=== PATIENT | female | born 1980 | race Asian ===

== ENCOUNTER 2017-02-25 07:30 | Day surgery (SDC) | payer BC ==
[2017-02-22 12:22] VITALS: BMI 20.5
--- NOTE | 2017-02-25 09:09 | HP ---
History & Physical Update - History History: No Change - Physical Physical: No Change - Assessment Assessment: No Change - Plan Plan: No Change (volutary sterlization - for laparoscopic bilateral salpingectomy)
[2017-02-25] MEDS ORDERED: BUPIVACAINE HCL/PF 0.25% (2.5MG/ML) 10 ML VIAL IJ ONE (10:28)
--- NOTE | 2017-02-25 10:38 | OP ---
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
--- NOTE | 2017-02-25 10:42 | SURG ---
Surgery Music Mixer Note Music Mixer: Radha Castro PA-C Date of Service: 02/25/17 Diagnosis: desire for permanent sterilization Procedure: laparoscopic bilateral salpingectomy, right ovarian cystectomy I was present for the entirety of the operative procedure. For further detail, please refer to operative report. Visit type - Case Type Case Type: Scheduled Admission - Emergency Emergency Visit: No - New patient This patient is new to me today: Yes Date on this admission: 02/25/17 - Critical Care Critical Care patient: No
[2017-02-25] MEDS ORDERED: KETOROLAC TROMETHAMINE 30 MG/1 ML VIAL IVPUSH ONE (10:49)
[2017-02-25] MEDS ORDERED: LACTATED RINGERS SOLUTION 1,000 ML IV SCH (11:00)
[2017-02-25] MEDS ORDERED: ONDANSETRON 4 MG/2 ML VIAL IVPUSH PRN (11:33)
[2017-02-25 12:20] VITALS: TEMP 98
[2017-02-25 15:10] VITALS: BP 104/63; PULSE 86
--- NOTE | 2017-02-28 13:35 | PATH ---
Surgical Pathology Report Patient Name: PAZ AVITIA [facility]. Rec. #: [id number] /Age/Gender: 1980 (Age: 36) / F Account: [id number] Location: [facility] SURGICAL Taken: 02/25/2017 Received: 02/25/2017 Reported: 02/28/2017 Physicians: Joaquina Tapia M.D. Specimen(s) Received A: PORTIONS OF LEFT & RIGHT FALLOPIAN TUBES B: RIGHT OVARIAN CYST Clinical History Voluntary sterilization Right ovarian cyst Final Diagnosis A. PORTIONS OF FALLOPIAN TUBES, LEFT AND RIGHT, BILATERAL SALPINGECTOMY: FIMBRIATED PORTIONS OF FALLOPIAN TUBES WITH COMPLETE CROSS SECTIONS AND FOCAL FIBRINOHEMORRHAGIC ADHESIONS. B. OVARY, RIGHT, CYSTECTOMY: MATURE CYSTIC TERATOMA. Electronically Signed Tip Alcocer M.D. Gross Description A. Received in formalin labeled "portion of left and right fallopian tubes" are 2 undesignated, fimbriated fallopian tubes measuring 5.5 and 7.5 cm in length. The outer surfaces are zelaya-purple. Sectioning reveals unremarkable lumens. Thermal Cutter Hand sections are submitted in 4 cassettes as follows: 1-fimbria from shorter tube; 2-cross sections of shorter tube; 3-fimbria from longer tube; 4-cross sections of longer tube. B. Received in formalin labeled "right ovarian cyst" is a 6.3 x 3.0 x 2.3 cm focally disrupted cyst. The outer surface is oneill-pink and smooth. The lumen contains sebaceous material and hair. Thermal Cutter Hand sections are submitted in 5 cassettes. 02/25/[address] [facility]02[facility]2017
--- NOTE | 2017-03-01 08:49 | OP ---
DATE OF OPERATION: 02/25/2017 PREOPERATIVE DIAGNOSIS: Desire for permanent sterilization. POSTOPERATIVE DIAGNOSES: Desire for permanent sterilization as well as right ovarian mature keratome. PROCEDURE: Laparoscopic bilateral salpingectomy and right ovarian cystectomy. SURGEON: Joaquina Tapia DO CALENDAR CONTROL CLERK BLOOD BANK: Sole Castro ANESTHESIA: General by Sara Soto MD. COMPLICATIONS: None. ESTIMATED BLOOD LOSS: 20 mL. SPECIMENS: Included bilateral fallopian tubes and right ovarian cyst sent to Pathology for permanent evaluation. DISPOSITION: Stable to PACU. BRIEF HISTORY AND PROCEDURE: Patient is a 36-year-old female who had been seen in the office, who had requested a sterilization procedure as she does not to bear any future children. Patient was counseled on her options, and she signed consents for a laparoscopic bilateral salpingectomy and any other indicated procedures. The patient was admitted to [facility] on February 25, 2017, as an outpatient. Consents for the procedure were confirmed. The patient was then taken back to the operating room where she was given general anesthesia by Sara Soto MD. She was in the dorsal lithotomy position, and a English catheter was placed under sterile conditions. The patient was prepped and draped in the usual sterile fashion. A hard timeout was performed. A 5-mm skin incision was created in the umbilicus, and the Veress needle was placed intra-abdominally. The abdomen was insufflated with CO2 gas. Next, a trocar was placed in the umbilical incision, and the camera was inserted intra-abdominally to confirm placement. After confirmation of intra-abdominal placement, 2 lower quadrant ports 5 mm in size were placed bilaterally under direct visualization. The left fallopian tube was elevated and dissected off its attachments to the ovary, the mesosalpinx, and the uterus using the LigaSure device. It was removed from the trocar intact under direct visualization. Attention was then turned to the right fallopian tube which was elevated and dissected off its attachments to the ovary, mesosalpinx, and uterus using the LigaSure device, and this was also removed under direct visualization through the trocar. Inspection of the left ovary revealed a normal-appearing ovary. Inspection of the right ovary revealed a very large, incidental ovarian cyst. An incision was created in the ovarian stroma, and the cyst wall was grasped and dissected away from its attachment to the ovarian tissue. Fatty tissue and hair were appreciated, consistent with a mature cystic teratoma. The tissue was completely resected from the ovarian stroma. The right lower quadrant port was extended to a 10-mm size, and a 10-mm port was placed. An Endo Catch bag was placed intra-abdominally. The cyst wall and cyst contents were placed into the Endo Catch bag and removed from the right lower quadrant port without difficulty. Copious irrigation and suction of the pelvis was completed. Excellent hemostasis was achieved in the surgical sites. The Chinmay-Sylvester device was used to close the fascia in the 10-mm right lower quadrant port. This was done under direct visualization with a 0 Vicryl tie. Skin was reapproximated using 4-0 Biosyn and skin glue, and the patient tolerated the procedure well, was recovering in stable condition after the procedure in the PACU. Sponge, needle, and instrument count was reported to be correct. She was awoken from anesthesia in stable condition after the procedure. JOAQUINA TAPIA DO /[id number]
== END 2017-02-25 15:00 | disposition home or self-care (01) ==
LOC: JASU-SURG 07:30
PROVIDERS: ATTEND Obstetrics & Gynecology
PROC: 0UB04ZZ Excision of Right Ovary, Percutaneous Endoscopic Approach (ICD-10-PCS; 2017-02-25)
PROC: 0UT74ZZ Resection of Bilateral Fallopian Tubes, Percutaneous Endoscopic Approach (ICD-10-PCS; principal; 2017-02-25 09:00)
DX: Z30.2 Encounter for sterilization (principal); N83.291 Other ovarian cyst, right side
CPT/HCPCS: 84703; 88302-TC; 88307-TC; 94760